=== PATIENT | female | born 1980 | race African-American/Black ===

== ENCOUNTER 2019-02-15 15:52 | Emergency (ER) | payer BC ==
[2019-02-15 16:01] VITALS: BP 138/99; PULSE 98; TEMP 98.7; BMI 32.5
--- NOTE | 2019-02-15 16:01 | PDOC ---
Rapid Medical Evaluation Chief Complaint: Pain Medical Evaluation: Allergies Allergy/AdvReac Type Severity Reaction Status Date / Time No Known Allergies Allergy Verified 09/09/15 12:51 I have performed a brief in-person evaluation of this patient. The patient presents with a chief complaint of: C/O generalized body aches since yesterday; hx of DM; denies fever, cough, n/v/d; states checked her sugar this morning and it was normal; +frequent urination since this morning Pertinent physical exam findings: In NAD I have ordered the following: Labs The patient will proceed to the ED for further evaluation. 02/15/19 15:59
[2019-02-15 16:25] LABS: HEMATOCRIT 33.3 % (32.4-45.2); HEMOGLOBIN 10.4 GM/dL (10.7-15.3); MCHC 31.2 g/dl (32.0-36.0); MEAN CELL VOLUME 60.6 fl (80-96); MEAN PLT VOLUME 9.9 fl (7.5-11.1); PLATELET COUNT 355 K/MM3 (134-434); RDW 19.1 % (11.6-15.6); WHITE BLOOD COUNT 12.9 K/mm3 (4.0-10.0)
[2019-02-15 16:26] LABS: VENOUS PC02 40.3 mmHg (41-51); VENOUS PH 7.4 (7.31-7.41); VENOUS PO2 35.4 mmHg (30-40)
[2019-02-15 16:39] LABS: MCH 18.9 pg (25.7-33.7)
[2019-02-15 17:01] LABS: BILIRUBIN,TOTAL 0.5 mg/dL (0.2-1); CALCIUM 8.7 mg/dL (8.5-10.1); CREATININE 0.8 mg/dL (0.55-1.3); TOT PROT 7.5 g/dl (6.4-8.2)
[2019-02-15] MEDS ORDERED: KETOROLAC TROMETHAMINE 30 MG/1 ML VIAL IVPUSH ONE (17:19)
[2019-02-15] MEDS ORDERED: KETOROLAC TROMETHAMINE 30 MG/1 ML VIAL ONE ×2 (17:28→17:29)
--- NOTE | 2019-02-15 17:48 | PDOC ---
History of Present Illness - General Chief Complaint: Pain Stated Complaint: ABD PAIN, ARM PAIN Time Seen by Provider: 02/15/19 15:59 History Source: Patient Exam Limitations: No Limitations - History of Present Illness Initial Comments: 02/15/19 16:42 38-year-old female presents to ED with complaints of mild frontal headache which began this morning associated with upper abdominal burning and urinary frequency. Patient states also had right arm pain upon awakening this morning which seemed to resolve by this afternoon. Patient states diabetic and has not checked her glucose today. Patient denies fever, chills, nausea, dizziness, visual changes, neck pain, difficulty breathing, chest pain cough, or lower abdominal pain. Patient also denies any bowel complaints. Timing/Duration: changing over time Severity: mild Associated Symptoms: reports: headaches Past History - Travel Traveled outside of the country in the last 30 days: No Close contact w/someone who was outside of country & ill: No - Past Medical History Allergies/Adverse Reactions: Allergies Allergy/AdvReac Type Severity Reaction Status Date / Time No Known Allergies Allergy Verified 02/15/19 16:01 Home Medications: Ambulatory Orders Clindamycin [Cleocin -] 300 mg PO Q6HPO #32 capsule 09/11/15 Ibuprofen 600 mg PO TID PRN #20 tablet 09/11/15 Miscellaneous Drug Not In Syst [Outpatient Lab Test] 1 each [place] [facility] [place] Miscellaneous Medical Supply [Outpatient Order] 1 each [place] #[place] [facility] [place] COPD: No Diabetes: Yes - Suicide/Smoking/Psychosocial Hx Smoking History: Never smoked Information on smoking cessation initiated: No Hx Alcohol Use: No Drug/Substance Use Hx: No Substance Use Type: None Hx Substance Use Treatment: No Patient Lives Alone: No Lives with/in: spouse/SO Review of Systems - Review of Systems Able to Perform ROS?: Yes Constitutional: No: Symptoms Reported HEENTM: No: Symptoms Reported Respiratory: No: Symptoms reported Cardiac (ROS): No: Symptoms Reported ABD/GI: Yes: Indigestion : Yes: Frequency. No: Symptoms Reported, Burning, Dysuria, Discharge, Flank Pain, Hematuria Musculoskeletal: Yes: Back Pain (upper right this morning upon awakening radiating to right upper arm) Integumentary: No: Symptoms Reported Neurological: Yes: Headache *Physical Exam - Vital Signs Last Vital Signs Temp Pulse Resp BP Pulse Ox 98.7 F 98 H 17 138/99 97 02/15/19 15:59 02/15/19 15:59 02/15/19 15:59 02/15/19 15:59 02/15/19 15:59 - Physical Exam General Appearance: Yes: Nourished, Appropriately Dressed. No: Apparent Distress HEENT: positive: EOMI, AGUSTÍN, TMs Normal, Pharynx Normal. negative: Pale Conjunctivae Neck: positive: Normal Thyroid, Supple Respiratory/Chest: positive: Lungs Clear, Normal Breath Sounds. negative: Chest Tender, Respiratory Distress, Accessory Muscle Use Cardiovascular: positive: Regular Rhythm, Regular Rate. negative: Murmur Gastrointestinal/Abdominal: positive: Soft. negative: Tenderness Musculoskeletal: negative: CVA Tenderness, Vertebral Tenderness Extremity: positive: Normal Inspection Integumentary: positive: Normal Color, Warm, Moist Neurologic: positive: Motor Strength 5/5 (ambulatory) ED Treatment Course - LABORATORY CBC & Chemistry Diagram: 02/15/19 16:13 02/15/19 16:13 - ADDITIONAL ORDERS Additional order review: Laboratory Results 02/15/19 02/15/19 16:13 16:13 VBG pH 7.40 POC VBG pCO2 40.3 L POC VBG pO2 35.4 VBG HCO3 24.5 VBG O2 Sat (Dejah) 58.5 L VBG Base Excess 0.3 Sodium 138 Potassium 4.0 Chloride 105 Carbon Dioxide 25 Anion Gap 7 L BUN 7 Creatinine 0.8 Est GFR (CKD-EPI)AfAm 107.64 Est GFR (CKD-EPI)NonAf 92.87 Random Glucose 85 Calcium 8.7 Total Bilirubin 0.5 AST 13 L ALT 20 Alkaline Phosphatase 124 H Total Protein 7.5 Albumin 3.0 L 02/15/19 16:13 RBC 5.50 H MCV 60.6 L MCHC 31.2 L RDW 19.1 H MPV 9.9 Neutrophils % No Result Required. Lymphocytes % No Result Required. - Medications Given in the ED: ED Medications Discontinued Medications Generic Name Dose Route Start Last Admin Trade Name Freq PRN Reason Stop Dose Admin Ketorolac Tromethamine 30 mg 02/15/19 17:19 02/15/19 17:31 Toradol Injection - IVPUSH 02/15/19 17:20 30 mg ONCE ONE Administration Medical Decision Making - Medical Decision Making 02/15/19 16:46 Complaint. Patient with headache, urinary frequency, right upper back pain radiating to right arm upon awakening this morning. Patient history of diabetes Exam. Vital signs stable. Patient with no abdominal tenderness, reproducible right arm pain or back pain Plan: Labs, urine and Toradol ordered 02/15/19 18:04 Laboratory Tests 02/15/19 02/15/19 02/15/19 16:13 16:13 16:13 WBC 12.9 H Hgb 10.4 L Hct 33.3 Absolute Neuts (auto) 8.7 H VBG pH 7.40 POC VBG pCO2 40.3 L POC VBG pO2 35.4 VBG HCO3 24.5 VBG O2 Sat (Dejah) 58.5 L VBG Base Excess 0.3 Sodium 138 Potassium 4.0 Chloride 105 Carbon Dioxide 25 Anion Gap 7 L BUN 7 Creatinine 0.8 Est GFR (CKD-EPI)AfAm 107.64 Random Glucose 85 Calcium 8.7 Total Bilirubin 0.5 AST 13 L ALT 20 Alkaline Phosphatase 124 H Total Protein 7.5 Albumin 3.0 L Lipase 128 Patient states pain has resolved after receiving Toradol. UA results pending 02/15/19 18:17 Laboratory Tests 02/15/19 17:24 Urine HCG, Qual Negative 02/15/19 18:25 Laboratory Tests 02/15/19 17:24 Urine Ketones Negative Urine Nitrite Negative Urine Bilirubin Negative Urine Urobilinogen 1.0 Ur Leukocyte Esterase Trace Urine WBC (Auto) 2 Urine RBC (Auto) 1 Urine Casts (Auto) 1 U Epithel Cells (Auto) 0.8 Urine Bacteria (Auto) 24.9 Patient will be discharged home. *DC/Admit/Observation/Transfer Diagnosis at time of Disposition: Abdominal pain - Discharge Dispostion Disposition: HOME Condition at time of disposition: Improved - Referrals - Patient Instructions Printed Discharge Instructions: DI for Abdominal Pain-Adult Additional Instructions: Please continue taking medication as prescribed. Drink plenty of fluids and eat well-balanced meals - Post Discharge Activity
[2019-02-15 18:16] LABS: EPI CELLS 0.8 /HPF (0-5/HPF); URINE APPEARANCE CLEAR; URINE BACTERIA 24.9 /hpf (NEGATIVE); URINE BILIRUBIN NEGATIVE (NEGATIVE); URINE CASTS 1 /lpf (0-8); URINE COLOR YELLOW; URINE GLUCOSE (UA) NEGATIVE (NEGATIVE); URINE KETONE NEGATIVE (NEGATIVE); URINE LEUK ESTERASE TRACE (NEGATIVE); URINE NITRITE NEGATIVE (NEGATIVE); URINE PROTEIN NEGATIVE (NEGATIVE); URINE RBC 1 /hpf (0-4); URINE WBC 2 /hpf (0-5)
[2019-02-15 20:43] LABS: ANISOCYTOSIS 1+; MACROCYTOSIS 0; PLATELET ESTIMATE NORMAL; TARGET CELLS 1+
== END 2019-02-15 18:55 | disposition home or self-care (01) ==
LOC: JER 15:52
PROC: 3E0333Z Introduction of Anti-inflammatory into Peripheral Vein, Percutaneous Approach (ICD-10-PCS; principal; 2019-02-15)
DX: R10.9 Unspecified abdominal pain (principal)
CPT/HCPCS: 36415; 80053; 81003; 82803; 83690; 84703; 85025; 87086; 99282-25

== ENCOUNTER 2019-02-25 22:15 | Emergency (ER) | payer BC ==
[2019-02-25 22:20] VITALS: BMI 36.5
--- NOTE | 2019-02-26 00:27 | PDOC ---
*Physical Exam - Vital Signs Last Vital Signs Temp Pulse Resp BP Pulse Ox 97.8 F 96 H 18 153/103 H 98 02/25/19 22:18 02/25/19 22:18 02/25/19 22:18 02/25/19 22:18 02/25/19 22:18 Medical Decision Making - Medical Decision Making 02/26/19 00:27 Patient seen by the advanced practice provider under my direct supervision. Ancillary testing reviewed as necessary. I agree with plan as outlined by the advanced practice provider. *DC/Admit/Observation/Transfer Diagnosis at time of Disposition: Pain in forearm Qualifiers: Laterality: bilateral Qualified Code(s): M79.632 - Pain in left forearm - Discharge Dispostion Disposition: HOME - Prescriptions Prescriptions: Ibuprofen 800 mg PO QID PRN #20 tablet PRN Reason: Pain - Referrals Referrals: Dain Pyle [Primary Care Provider] - - Patient Instructions Printed Discharge Instructions: DI for Forearm Muscle Strain Additional Instructions: please use a wrist splint for carpel tunnel as tolerated. take ibuprofen as prescribed follow up with your doctor as soon as possible. - Post Discharge Activity Forms/Work/School Notes: Back to Work
--- NOTE | 2019-02-26 00:34 | PDOC ---
History of Present Illness - General Chief Complaint: Pain, Acute Stated Complaint: HARM PAIN Time Seen by Provider: 02/26/19 00:12 Past History - Past Medical History Allergies/Adverse Reactions: Allergies Allergy/AdvReac Type Severity Reaction Status Date / Time No Known Allergies Allergy Verified 02/25/19 22:17 Home Medications: Ambulatory Orders Clindamycin [Cleocin -] 300 mg PO Q6HPO #32 capsule 09/11/15 Ibuprofen 600 mg PO TID PRN #20 tablet 09/11/15 Miscellaneous Drug Not In Syst [Outpatient Lab Test] 1 each ASDIR #1 misc 01/21 Miscellaneous Medical Supply [Outpatient Order] 1 each ASDIR #1 misc COPD: No Diabetes: Yes - Suicide/Smoking/Psychosocial Hx Smoking History: Never smoked Hx Alcohol Use: No Drug/Substance Use Hx: No Substance Use Type: None Hx Substance Use Treatment: No *Physical Exam - Vital Signs Last Vital Signs Temp Pulse Resp BP Pulse Ox 97.8 F 96 H 18 153/103 H 98 02/25/19 22:18 02/25/19 22:18 02/25/19 22:18 02/25/19 22:18 02/25/19 22:18 *DC/Admit/Observation/Transfer - Referrals Referrals: Dain Pyle [Primary Care Provider] - - Patient Instructions - Post Discharge Activity
[2019-02-26] MEDS ORDERED: IBUPROFEN 400 MG TABLET (FP) PO ONE (00:37)
--- NOTE | 2019-02-26 00:38 | PDOC ---
History of Present Illness - General Chief Complaint: Pain, Acute Stated Complaint: HARM PAIN Time Seen by Provider: 02/26/19 00:12 History Source: Patient - History of Present Illness Initial Comments: 02/26/19 00:40 38 year old female b/l forearm pain x 2 days. 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 denies trauma or injury 02/26/19 00:43 Past History - Past Medical History Allergies/Adverse Reactions: Allergies Allergy/AdvReac Type Severity Reaction Status Date / Time No Known Allergies Allergy Verified 02/25/19 22:17 Home Medications: Ambulatory Orders Clindamycin [Cleocin -] 300 mg PO Q6HPO #32 capsule 09/11/15 Ibuprofen 600 mg PO TID PRN #20 tablet 09/11/15 Miscellaneous Drug Not In Syst [Outpatient Lab Test] 1 each ASDIR #1 misc 01/21 Miscellaneous Medical Supply [Outpatient Order] 1 each ASDIR #1 misc Ibuprofen 800 mg PO QID PRN #20 tablet 02/26/19 COPD: No Diabetes: Yes - Suicide/Smoking/Psychosocial Hx Smoking History: Never smoked Hx Alcohol Use: No Drug/Substance Use Hx: No Substance Use Type: None Hx Substance Use Treatment: No Review of Systems - Review of Systems Able to Perform ROS?: Yes Is the patient limited Pashto proficient: No Musculoskeletal: Yes: Other (forearm pain) *Physical Exam - Vital Signs Last Vital Signs Temp Pulse Resp BP Pulse Ox 97.8 F 96 H 18 153/103 H 98 02/25/19 22:18 02/25/19 22:18 02/25/19 22:18 02/25/19 22:18 02/25/19 22:18 - Physical Exam General Appearance: Yes: Appropriately Dressed Extremity: positive: Normal Inspection, Normal Range of Motion, Other (no swelling no edema) Integumentary: positive: Normal Color, Dry, Warm Neurologic: positive: Fully Oriented, Alert, Normal Mood/Affect Progress Note - Progress Note Progress Note: A: forearm strain P: pain control wrist splint pcp follow up *DC/Admit/Observation/Transfer Diagnosis at time of Disposition: Pain in forearm Qualifiers: Laterality: bilateral Qualified Code(s): M79.632 - Pain in left forearm - Discharge Dispostion Disposition: HOME - Prescriptions Prescriptions: Ibuprofen 800 mg PO QID PRN #20 tablet PRN Reason: Pain - Referrals Referrals: Dain Pyle [Primary Care Provider] - - Patient Instructions Printed Discharge Instructions: DI for Forearm Muscle Strain Additional Instructions: please use a wrist splint for carpel tunnel as tolerated. take ibuprofen as prescribed follow up with your doctor as soon as possible. - Post Discharge Activity Forms/Work/School Notes: Back to Work
[2019-02-26] MEDS ORDERED: IBUPROFEN 600 MG TABLET (FP) PO ONE (00:49)
[2019-02-26 01:58] VITALS: BP 139/99; PULSE 80; TEMP 98.2
== END 2019-02-26 02:01 | disposition home or self-care (01) ==
LOC: JER 22:15
PROC: 2W3DX1Z Immobilization of Left Lower Arm using Splint (ICD-10-PCS; principal; 2019-02-25)
DX: S56.812A Strain of other muscles, fascia and tendons at forearm level, left arm, initial encounter (principal); X50.3XXA Overexertion from repetitive movements, initial encounter; Y93.C1 Activity, computer keyboarding; Y92.89 Other specified places as the place of occurrence of the external cause; Y99.0 Civilian activity done for income or pay
CPT/HCPCS: 99282-25

== ENCOUNTER 2019-03-01 23:28 | Emergency (ER) | payer BC ==
[2019-03-01 23:41] VITALS: BMI 32.5
--- NOTE | 2019-03-01 23:52 | PDOC ---
History of Present Illness - General Chief Complaint: Chest Pain Stated Complaint: CHEST PAIN Time Seen by Provider: 03/01/19 23:52 History Source: Patient Exam Limitations: No Limitations - History of Present Illness Initial Comments: 03/01/19 23:59 38 year old female with PMH DM presented to ED for no productive cough, nasal congestion since monday and chest pain with coughing x2 days. Pt denied fever, palpitations, shortness of breath, lightheadedness. Pt stated she has been taking Robitussin and Alkaseltzer for her symptoms without relief of the pain. Allergies: NKDA Past History - Past Medical History Allergies/Adverse Reactions: Allergies Allergy/AdvReac Type Severity Reaction Status Date / Time No Known Allergies Allergy Verified 03/01/19 23:41 Home Medications: Ambulatory Orders NK [No Known Home Medication] 03/01/19 COPD: No Diabetes: Yes - Suicide/Smoking/Psychosocial Hx Smoking History: Never smoked Have you smoked in the past 12 months: No Information on smoking cessation initiated: No Hx Alcohol Use: No Drug/Substance Use Hx: No Substance Use Type: None Hx Substance Use Treatment: No Review of Systems - Review of Systems Able to Perform ROS?: Yes Comments:: 03/02/19 00:00 General: denied fever, chills, generalized weakness. HEENT: denied sore throat, rhinorrhea, ear pain. Heart: admitted to chest pain. denied palpitations, syncope, diaphoresis. Respiratory: admitted to cough. denied shortness of breath, sputum production, hemoptysis. Abdomen: denied abdominal pain, nausea, vomiting, diarrhea, constipation, blood in stool. : denied dysuria, increased urinary frequency, hematuria, urinary incontinence , flank pain. Back: denied back pain. Musculoskeletal: denied joint pain, muscle pain, joint swelling. Neurological: denied headache, dizziness, numbness, tingling, weakness. Skin: denied rash, laceration, abrasion. *Physical Exam - Vital Signs Last Vital Signs Temp Pulse Resp BP Pulse Ox 98.8 F 99 H 18 129/84 100 03/01/19 23:39 03/01/19 23:39 03/01/19 23:39 03/01/19 23:39 03/01/19 23:39 - Physical Exam Comments: 03/02/19 00:01 Constitutional: Well-nourished, Well-developed, appearing stated age. HEENT: head is normocephalic, atraumatic. EOMI. PERRLA. nasal congestion. no posterior pharyngeal erythema. no tonsillar swelling or exudates bilaterally. Neck: supple. Full ROM. Heart: regular rhythm. no murmurs, rubs or gallops. Lungs: clear to auscultation bilaterally. no crackles, rhonchi or wheezing. no stridor. Abdomen: soft, nontender. normal bowel sounds. no rebound, guarding, masses. Extremities: peripheral pulses intact. no lower extremity edema. Neurological: CN 2-12 grossly intact. moves all four extremities. Psych: awake, alert, oriented x3. follows commands. answers questions appropriately. ED Treatment Course - LABORATORY CBC & Chemistry Diagram: 03/02/19 00:17 03/02/19 00:17 Medical Decision Making - Medical Decision Making 03/02/19 00:01 38 year old female with above PMH presented to ED for nonproductive cough, nasal congestion, chest pain with coughing. Initial Vital Signs Temp Pulse Resp BP Pulse Ox 98.8 F 99 H 18 129/84 100 03/01/19 23:39 03/01/19 23:39 03/01/19 23:39 03/01/19 23:39 03/01/19 23:39 Afebrile. No tachycardia. No tachypnea. No hypotension. No hypoxia on room air. Imaging ordered: CXR Labs ordered: none Medications ordered: Tylenol 975 mg PO once EKG performed at 2325: rate 105, regular rhythm, normal axis, normal intervals, nonspecific ST changes. 03/02/19 00:51 CBC WBC 12.6 K/mm3 (4.0-10.0) H 03/02/19 00:17 RBC 5.60 M/mm3 (3.60-5.2) H 03/02/19 00:17 Hgb 10.4 GM/dL (10.7-15.3) L 03/02/19 00:17 Hct 34.0 % (32.4-45.2) 03/02/19 00: MCV 60.6 fl (80-96) L 03/02/19 00: MCH 18.6 pg (25.7-33.7) L 03/02/19 00: MCHC 30.6 g/dl (32.0-36.0) L 03/02/19 00:17 RDW 19.1 % (11.6-15.6) H 03/02/19 00:17 Plt Count 366 K/MM3 (134-434) 03/02/19 00:17 MPV 9.1 fl (7.5-11.1) 03/02/19 00:17 Absolute Neuts (auto) 6.8 K/mm3 (1.5-8.0) 03/02/19 00:17 Neutrophils % 53.5 % (42.8-82.8) D 03/02/19 00:17 Lymphocytes % 20.3 % (8-40) 03/02/19 00:17 Monocytes % 10.3 % (3.8-10.2) H 03/02/19 00:17 Eosinophils % 15.1 % (0-4.5) H D 03/02/19 00:17 Basophils % 0.8 % (0-2.0) D 03/02/19 00:17 Nucleated RBC % 0 % (0-0) 03/02/19 00:17 Leukocytosis with no left shift. Mild microcytic anemia. 03/02/19 01:31 CMP Sodium 138 mmol/L (136-145) 03/02/19 00:17 Potassium 4.0 mmol/L (3.5-5.1) 03/02/19 00:17 Chloride 106 mmol/L (98-107) 03/02/19 00:17 Carbon Dioxide 26 mmol/L (21-32) 03/02/19 00:17 Anion Gap 7 MMOL/L (8-16) L 03/02/19 00:17 BUN 10 mg/dL (7-18) 03/02/19 00:17 Creatinine 0.8 mg/dL (0.55-1.3) 03/02/19 00:17 Est GFR (CKD-EPI)AfAm 107.64 03/02/19 00:17 Est GFR (CKD-EPI)NonAf 92.87 03/02/19 00:17 Random Glucose 176 mg/dL (74-106) H 03/02/19 00:17 Calcium 8.6 mg/dL (8.5-10.1) 03/02/19 00:17 Total Bilirubin 0.4 mg/dL (0.2-1) 03/02/19 00:17 AST 10 U/L (15-37) L 03/02/19 00:17 ALT 19 U/L (13-61) 03/02/19 00:17 Alkaline Phosphatase 134 U/L (45-117) H 03/02/19 00:17 Troponin I < 0.02 ng/ml (0.00-0.05) 03/02/19 00:17 Total Protein 7.4 g/dl (6.4-8.2) 03/02/19 00:17 Albumin 2.8 g/dl (3.4-5.0) L 03/02/19 00:17 No electrolyte abnormalities. No CLAUDINE. No tranaminitis. Normal troponin. 03/02/19 01:44 Pt reassessed, reported improvement of symptoms. 03/02/19 02:04 Vital Signs Temperature 98.3 F 03/02/19 01:48 Pulse Rate 95 H 03/02/19 01:48 Respiratory Rate 18 03/01/19 23:39 Blood Pressure 143/94 03/02/19 01:48 O2 Sat by Pulse Oximetry (%) 98 03/02/19 01:48 Afebrile. No tachycardia. No tachypnea. Mild hypertension. No hypoxia on room air. Pt discharged. *DC/Admit/Observation/Transfer Diagnosis at time of Disposition: Cough, Microcytic anemia, Leukocytosis - Discharge Dispostion Condition at time of disposition: Stable Decision to Admit order: No - Referrals Referrals: Yung Anna MD [Primary Care Provider] - - Patient Instructions Printed Discharge Instructions: DI for Cough -- Adult, DI for Viral Upper Respiratory Infection -- Adult, DI for Iron Deficiency Anemia-Adult Additional Instructions: Your EKG was normal. Your Chest X-ray was normal. Your lab work showed you are anemic, likely from an iron deficiency. Follow up with your primary care doctor on this. Your lab work showed an elevation of your white blood cell count, an indicator of infection. You likely have a viral illness that will get better on its own. Take Tylenol 1000 mg every 8 hours as needed for pain/fever. Buy it over the counter. Drink lots of clear fluids, like water/gatorade, to stay hydrated. Follow up with your primary care doctor within 4 days. Your care is not compete until you follow up. Mention to your primary care doctor that you stopped taking your Metformin. Return to the Emergency Department for chest pain, shortness of breath, coughing up blood, swelling/pain in your calf, fever>104F despite Tylenol use, fever>5 days or any other new, worsening or concerning symptoms. - Post Discharge Activity Forms/Work/School Notes: Back to Work
[2019-03-01] MEDS ORDERED: ACETAMINOPHEN 325 MG TABLET (FP) PO ONE (23:59)
[2019-03-02] MEDS ORDERED: ACETAMINOPHEN 325 MG TABLET (FP) ONE (00:06)
[2019-03-02 00:36] LABS: BASO % 0.8 % (0-2.0); EOS % 15.1 % (0-4.5); HEMOGLOBIN 10.4 GM/dL (10.7-15.3); LYMPH % 20.3 % (8-40); MCHC 30.6 g/dl (32.0-36.0); MEAN CELL VOLUME 60.6 fl (80-96); MEAN PLT VOLUME 9.1 fl (7.5-11.1); MONO % 10.3 % (3.8-10.2); NEUT % 53.5 % (42.8-82.8); PLATELET COUNT 366 K/MM3 (134-434); RDW 19.1 % (11.6-15.6); WHITE BLOOD COUNT 12.6 K/mm3 (4.0-10.0)
[2019-03-02 00:47] LABS: MCH 18.6 pg (25.7-33.7)
[2019-03-02 01:11] LABS: ALBUMIN 2.8 g/dl (3.4-5.0); ALK PHOS 134 U/L (45-117); ANION GAP 7 MMOL/L (8-16); BILIRUBIN,TOTAL 0.4 mg/dL (0.2-1); BLOOD UREA NITROGEN 10 mg/dL (7-18); CALCIUM 8.6 mg/dL (8.5-10.1); CHLORIDE 106 mmol/L (98-107); CO2 26 mmol/L (21-32); CREATININE 0.8 mg/dL (0.55-1.3); GLUCOSE,RANDOM 176 mg/dL (74-106); SGOT/AST 10 U/L (15-37); SGPT/ALT 19 U/L (13-61); SODIUM 138 mmol/L (136-145); TOT PROT 7.4 g/dl (6.4-8.2)
[2019-03-02 01:48] VITALS: BP 143/94; PULSE 95; TEMP 98.3
--- NOTE | 2019-03-02 02:21 | PDOC ---
Documentation entered by Dave Vargas SCRIBE, acting as scribe for Regis Prescott MD. Regis Prescott MD: This documentation has been prepared by the Alicia kelly Nirvannie, SCRIBE, under my direction and personally reviewed by me in its entirety. I confirm that the documentation accurately reflects all work, treatment, procedures, and medical decision making performed by me. Attending Attestation - Resident Resident Name: DaliKelsey - ED Attending Attestation I have performed the following: I have examined & evaluated the patient, The case was reviewed & discussed with the resident, I agree w/resident's findings & plan - HPI HPI: 03/02/19 00:13 The patient is a 38 year old female, with a significant past medical history of DM (noncompliant with medication secondary to medication giving her body aches) , who presents to the emergency department with, 4 days of nasal congestion, non productive cough, and chest pain when coughing. Reports CP occurs only when coughing, does not occur with deep breath, exertion, or at rest. Denies SOB. Denies fevers, chills. Patient endorses using Robitussin and Blanca-Kinsley for her symptoms, with mild relief. Pt believes she got sick from another patient last time she was here 5 days ago. She denies recent headache, stiff neck, focal weakness/numbness, or dizziness. She denies recent nausea, vomit, diarrhea or constipation. She denies recent dysuria, frequency, urgency or hematuria. No recent travel or immobility. Not on control. Allergies: NKDA - Physicial Exam PE: 03/02/19 00:13 GENERAL: Awake, alert, and fully oriented, in no acute distress. Non toxic appearing EYES: PERRLA, EOMI, sclera anicteric, conjunctiva clear ENT: +nasal congestion, oropharynx clear without exudates. Moist mucosa NECK: Normal ROM, supple, no lymphadenopathy, JVD, or masses LUNGS: Breath sounds equal, clear to auscultation bilaterally. No wheezes, and no crackles HEART: Regular rate and rhythm, normal S1 and S2, no murmurs, rubs or gallops ABDOMEN: Soft, nontender, normoactive bowel sounds. No guarding, no rebound. No masses EXTREMITIES: Normal range of motion, no edema. No cords, erythema, or tenderness NEUROLOGICAL: Normal speech, cranial nerves intact, equal strength and sensation b/l SKIN: Warm, Dry, normal turgor, no rashes or lesions noted. = - Medical Decision Making 03/02/19 02:18 38yo F hx NIDDM presents to the ED with cough, congestion, and chest soreness when she coughs. Vitals wnl Exam wnl Pt non toxic appearing Likely viral syndrome. Labs with mild leukocytosis and iron deficiency anemia Pt reports his anemia and heavy periods 2/2 fibroids but she follows with her PMD for this EKG non ischemic, and CP only when coughing would be highly atypical for ACS Athough mildly tachycardic, in absence of SOB and risk factors, low likelihood PE Plan for supportive care Pt clinically stable for DC home with PMD f/u I discussed the physical exam findings, ancillary test results and final diagnoses with the patient. I answered all of the patient's questions. The patient was satisfied with the care received and felt comfortable with the discharge plan and treatment plan. The patient will call their primary care physician within 24 hours to arrange follow-up and will return to the Emergency Department with any new, persistent or worsening symptoms. Heart Score/ECG Review #1 03/02/19 02:17 Twelve-lead EKG was performed and reviewed by me. Sinus tachycardia, rate 105. Normal axis and intervals. No ST elevations. Isolated TWI in lead III.
[2019-03-02 03:21] LABS: ANISOCYTOSIS 2+; MACROCYTOSIS 0; PLATELET ESTIMATE NORMAL
--- NOTE | 2019-03-02 15:29 | EKG ---
Test Reason : Blood Pressure : / mmHG Vent. Rate : 105 BPM Atrial Rate : 105 BPM P-R Int : 120 ms QRS Dur : 082 ms QT Int : 336 ms P-R-T Axes : 042 003 -05 degrees QTc Int : 444 ms SINUS TACHYCARDIA OTHERWISE NORMAL ECG NO PREVIOUS ECGS AVAILABLE Confirmed by MD Butch, Flaco ([id number]) on 03/02/2019 3:29:29 PM Referred By: Confirmed By:Flaco Rae MD
== END 2019-03-02 02:13 | disposition home or self-care (01) ==
LOC: JER 23:28
DX: J06.9 Acute upper respiratory infection, unspecified (principal); B97.89 Other viral agents as the cause of diseases classified elsewhere; B50.9 Plasmodium falciparum malaria, unspecified; D72.829 Elevated white blood cell count, unspecified
CPT/HCPCS: 36415; 71046-TC-FY; 80053; 84484; 85025; 93005; 93010; 99283-25

== ENCOUNTER 2021-08-25 15:38 | Emergency (ER) | payer BC, OTHER ==
[2021-08-25 16:16] VITALS: BMI 31.7
[2021-08-25] MEDS ORDERED: ACETAMINOPHEN 325 MG TABLET (FP) PO ONE (16:33)
[2021-08-25] MEDS ORDERED: CASIRIVIMAB/IMDEVIMAB 10 ML in SODIUM CHLORIDE 100 ML IVPB ONE (16:35)
[2021-08-25] MEDS ORDERED: ACETAMINOPHEN 325 MG TABLET (FP) ONE (18:08)
[2021-08-25 19:48] VITALS: TEMP 99
[2021-08-25 20:05] VITALS: BP 106/68; PULSE 86
== END 2021-08-25 20:06 | disposition home or self-care (01) ==
LOC: JER 15:38
DX: U07.1 COVID-19 (principal)
CPT/HCPCS: 71046-TC-FY; 99284-25; Q0240